=== PATIENT | female | born 1990 | race Caucasian/White ===

== ENCOUNTER 2016-12-10 07:55 | Inpatient (IN) | payer MEDICAID ==
[2016-12-10] VITALS (58 sets, daily range): BP systolic 75–139; BP diastolic 47–90; PULSE 71–125; RESP 16–20; TEMP 97.4–98.9
[~2016-12-10 07:55] MED LIST: MACR100C PO
--- NOTE | 2016-12-10 09:25 | MH ---
cc: BECKIE DELUCA DATE OF ADMISSION: 12/10/2016 DATE OF 1990 REASON FOR INDUCTION 1. Primip at 4+ cm. 2. Group B Strep positive. 3. Decreased movement. 4. Currently a SCOUPY. HISTORY OF PRESENT ILLNESS The patient is a 26-year-old single white female, 1, para 0, with EDC of December 17 based on early ultrasound who is 38 and 6/7 weeks has of December 09. She was seen in the office today. She is a resident of [facility]. She has been clean over 4 months. Her drugs of choice were Dilaudid and methadone. 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 She is currently taking Valtrex 500 b.i.d. for a history of genital herpes with no symptomatology and she is taking vitamins. She is Group B Strep positive and in the office she was 4 cm, 90% bulging bag of water, -1 and anterior. She was noting decreased movement over the last day and, based on the composite of these symptoms and issues the decision was made for her to come in on December 08 at 8 o'clock for AROM and Pitocin augmentation if indicated based on tolerance. However, we have reschedules her to the morning just due to capacity. MEDICAL HISTORY Her general health is good. She has no chronic or systemic illnesses other than major depressive disorder and anxiety disorder and a history of recurrent genital herpes. SOCIAL HISTORY She apparently does not smoke, drink or use any illicit drugs. PAST SURGICAL HISTORY She has had no other surgeries. FAMILY HISTORY Noncontributory. REVIEW OF SYSTEMS She acknowledges decreased movement but has no leaking or bleeding. She has some irregular contractions, no more than four in an hour but she is 4 cm. PHYSICAL EXAMINATION GENERAL: She is a well-developed, well-nourished female who is very anxious. LUNGS: Clear to auscultation. HEART: Rate and rhythm are regular. ABDOMEN: Fundus was term. Estimated weight is 7 pounds. Pelvis is clinically adequate. She has no CVA tenderness. EXTREMITIES: She has minimal edema and normal deep tendon reflexes. VITAL SIGNS: She is normotensive with normal pulse. IMPRESSION AT THIS POINT 1. Term intrauterine with a history of opioid use disorder in recovery for four months. 2. She has Terril I diagnosis and is on Lamictal. 3. She has a history of recurrent genital herpes and is on Valtrex. 4. She is Group B Strep positive. Based on the decreased movement formally and the other situations, she is being brought in as soon as there is a room available for AROM with Pitocin augmentation as needed. She understands I will not be able to deliver her baby, that it will be my partner, Dr. Jiménez, and that she will return to my care in the . Beckie Deluca MD PPC/SSB /9:00 PM /9:24 AM
[2016-12-10] MEDS ORDERED: OXYTOCIN 30 UNITS 500ML PREMIX IV ONE (09:30)
[2016-12-10] MEDS ORDERED: NS 500 ML BOLUS IV PRN (09:30)
[2016-12-10] MEDS ORDERED: LACTATED RINGER'S 1000 ML BOLUS IV PRN (09:30)
[2016-12-10] MEDS ORDERED: CITRIC ACID-SODIUM CITRATE LIQ 30 ML UDC PO SCH (09:30)
[2016-12-10] MEDS ORDERED: MINERAL OIL 10 ML VIAL TOP PRN (09:30)
[2016-12-10] MEDS ORDERED: PENICILLIN G POT 5,000,000 UNITS/NS 100 ML (Mini-Bag Plus) IV ONE ×2 (09:30)
[2016-12-10] MEDS ORDERED: LIDOCAINE HCL 1% 50 ML VIAL INFIL PRN (09:30)
[2016-12-10] MEDS ORDERED: OXYTOCIN 30 UNITS/NS 500ML PREMIX IV SCH (09:30)
[2016-12-10] MEDS ORDERED: LIDOCAINE HCL 1% 50 ML VIAL I-DERMAL PRN (09:30)
[2016-12-10] MEDS ORDERED: NS 1000 ML IV PRN (09:30)
[2016-12-10 09:50] LABS: AUTOMATED NEUTROPHIL # 8.9 TH/MM3 (1.8-7.7); BASOPHIL % 0.3 % (0.0-2.0); EOSINOPHIL # 0.1 TH/MM3 (0-0.4); EOSINOPHIL % 0.9 % (0.0-4.0); HEMATOCRIT 31.9 % (35.0-46.0); HEMO FLAGS DIFF FINAL; LYMPHOCYTE # 2.1 TH/MM3 (1.0-4.8); MEAN CELL VOLUME 80.3 FL (80.0-100.0); MEAN CORPUSCULAR HEMOGLOBIN 26.6 PG (27.0-34.0); MEAN CORPUSCULAR HGB CONC 33.1 % (32.0-36.0); MONO % 6.1 % (0.0-8.0); NEUT % 74.7 % (16.0-70.0); PLATELET COUNT 267 TH/MM3 (150-450); RED BLOOD COUNT 3.97 MIL/MM3 (4.00-5.30); RED CELL DISTRIBUTION WIDTH 15.1 % (11.6-17.2); WHITE BLOOD COUNT 11.9 TH/MM3 (4.0-11.0)
[2016-12-10 09:58] LABS: BLOOD, URINE NEG (NEG); GLUCOSE,URINE NEG (NEG); KETONE, URINE NEG (NEG); NITRITE,URINE NEG (NEG); PH, URINE 6.5 (5.0-8.5); SQUAMOUS EPITHELIAL CELL URINE 1 /hpf (0-5); URINE COLOR LIGHT-YELLOW (YELLW/STRAW)
[2016-12-10 10:04] LABS: COMMENT (UR) CULT NOT INDICATED; CULTURE IF INDICATED CULT NOT INDICATED
[2016-12-10 10:06] LABS: AMPHETAMINE, URINE NEG (NEG); BARBITURATES, URINE NEG (NEG); COCAINE, URINE NEG (NEG)
[2016-12-10] MEDS: LACTATED RINGER'S 1000 ML IV SCH ×2 (10:25→13:45)
--- NOTE | 2016-12-10 11:39 | PD.LABORPN ---
Subjective Subjective feeling ctx more intensely Objective Objective Uterine Contractions:q 4-5 min FHT's: Category: I presently. Previous decel at time of admission, otherwise reactive. Assessment/Plan Problem List: (1) Hep C w/ coma, chronic (2) HSV-2 infection complicating (3) GBS (group B Streptococcus carrier), +RV culture, currently (4) Adjustment disorder with mixed disturbance of emotions and conduct Assessment and Plan PT of Dr. Estrada here for iol iol- arom and pitocin Hep C- high viral load. f/u with GI pp Bipolar- lamictal 100mg daily GBS positive Berenice Montaño MD Dec 10, 2016 11:39
[2016-12-10] MEDS ORDERED: fentaNYL 2MCG-BUPIV 0.125% INJ 100 ML ONE (12:15)
[2016-12-10] MEDS ORDERED: DO NOT ADMINISTER ANTICOAGULANTS XX PRN (12:45)
[2016-12-10] MEDS ORDERED: NO SYSTEM NARCOTICS XX PRN (12:45)
[2016-12-10] MEDS ORDERED: ePHEDrine/NS 50 MG/5 ML SYR IV PRN (12:45)
[2016-12-10] MEDS ORDERED: fentaNYL 2MCG-BUPIV 0.125% INJ 100 ML EPIDURAL SCH (12:45)
[2016-12-10] MEDS ORDERED: PENICILLIN G POT 2,500,000 UNITS/NS 100 ML IV SCH ×2 (13:00)
[2016-12-10] MEDS ORDERED: DIPHTH/TETANUS/ACEL PERTUSSIS (BOOSTER) 0.5 ML VIAL/PFS IM ONE (16:00)
[2016-12-10] MEDS ORDERED: MEASLES, MUMPS, RUBELLA VACCINE 0.5 ML VIAL SQ ONE (16:00)
--- NOTE | 2016-12-10 18:46 | PD.OB.DELI ---
Delivery Date: Dec 10, 2016 Anesthesia: Epidural Episiotomy: None Vaginal Delivery: Normal Presentation: Occiput anterior Nuchal Cord: None, Other (true knot) Delayed cord clamping (45 sec): Yes Infant: Male One Minute : 8 Five Minute : 9 Weight: 3710g Infant Care: Suctioned, Responded to stimulation Placenta: Spontaneous delivery Laceration: Vaginal laceration (right labial laceration) Repair: Chromic running Additional Information ebl 300ml Berenice Montaño MD Dec 10, 2016 18:46
--- NOTE | 2016-12-10 18:48 | HHI.DCPOC ---
Discharge Care Plan Diagnosis: (1) Hep C w/ coma, chronic (2) HSV-2 infection complicating (3) Adjustment disorder with mixed disturbance of emotions and conduct (4) (spontaneous vaginal delivery) Your Health Problems Are: Vaginal delivery Report Symptoms to Your Doctor -Temperate above 100.5 degrees -Redness, of incision or excessive or foul smelling drainage -Unusual pain or calf pain -Increased vaginal bleeding -Painful or difficulty urinating -Feelings of extreme sadness or anxiety after 2 weeks Goals to Promote Your Health * To prevent worsening of your condition and complications * To maintain your health at the optimal level Directions to Meet Your Goals Take your medications as prescribed Follow your dietary instruction Follow activity as directed Ensure plenty of rest for recovery Drink fluids for hydration Keep your appointments as scheduled Take your immunizations and boosters as scheduled If your symptoms worsen call your PCP, if no PCP go to Urgent Care Center or Emergency Room Smoking is Dangerous to Your Health. Avoid second hand smoke Call the 24-hour crisis hotline for domestic abuse at Berenice Montaño MD Dec 10, 2016 18:48
[2016-12-10] MEDS ORDERED: SODIUM CHLORIDE 0.9% FLUSH 5 ML FLUSH IV PRN (19:00)
[2016-12-10] MEDS ORDERED: DOCUSATE SODIUM 50 MG/SENNA 8.6 MG TAB PO PRN (19:00)
[2016-12-10] MEDS ORDERED: ONDANSETRON ODT 4 MG TAB PO PRN (19:00)
[2016-12-10] MEDS ORDERED: ZOLPIDEM TARTRATE 5 MG TAB PO PRN (19:00)
[2016-12-10] MEDS ORDERED: ALUMINUM/MAGNESIUM/SIMETH 30 ML CUP PO PRN (19:00)
[2016-12-10] MEDS ORDERED: WITCH HAZEL 50%/GLYCERIN 12.5% 40 PAD JAR TOPICAL PRN (19:00)
[2016-12-10] MEDS ORDERED: BENZOCAINE 20% TOPICAL SPRAY 60 ML CAN TOPICAL PRN (19:00)
[2016-12-10] MEDS: IBUPROFEN 600 MG TAB PO PRN (20:19)
[2016-12-10] MEDS ORDERED: SODIUM CHLORIDE 0.9% FLUSH 5 ML FLUSH IV SCH (21:00)
[2016-12-11] MEDS: IBUPROFEN 600 MG TAB PO PRN ×4 (05:05→23:42)
[2016-12-11] MEDS: ACETAMINOPHEN 325 MG TAB PO PRN ×4 (07:47→23:39)
[2016-12-11 08:00] VITALS: BP 125/68; PULSE 84; RESP 18; TEMP 97.5; O2SAT 98
--- NOTE | 2016-12-11 08:08 | HHI.OB ---
Subjective Post Day: 1 Remarks c/o perineal soreness Objective Vitals/I&O Vital Signs Date Time Temp Pulse Resp B/P Pulse Ox O2 Delivery O2 Flow Rate FiO2 12/10/16 22:00 97.4 83 18 121/76 12/10/16 21:30 98.1 12/10/16 21:30 18 12/10/16 21:15 91 18 139/67 12/10/16 21:01 87 117/63 12/10/16 21:00 18 12/10/16 20:45 89 119/72 12/10/16 20:30 96 117/66 12/10/16 20:18 98.9 12/10/16 20:15 94 118/65 12/10/16 20:13 18 12/10/16 20:00 90 125/68 12/10/16 20:00 18 12/10/16 19:45 93 119/60 12/10/16 19:01 95 75/47 12/10/16 18:45 20 12/10/16 18:30 109 135/57 12/10/16 17:30 88 127/79 12/10/16 17:05 20 12/10/16 17:00 86 127/76 12/10/16 16:32 20 12/10/16 16:30 125 127/90 12/10/16 16:04 98.1 12/10/16 16:04 20 12/10/16 16:00 81 136/82 12/10/16 15:40 82 12/10/16 15:35 78 12/10/16 15:30 81 104/72 12/10/16 15:30 84 12/10/16 15:10 83 12/10/16 15:05 91 12/10/16 15:00 85 12/10/16 15:00 86 108/63 12/10/16 14:40 73 12/10/16 14:30 71 128/78 12/10/16 14:15 20 12/10/16 14:10 83 12/10/16 14:05 90 12/10/16 14:00 93 113/70 12/10/16 14:00 86 12/10/16 13:45 16 12/10/16 13:40 73 12/10/16 13:35 74 12/10/16 13:30 77 18 112/71 12/10/16 13:30 71 12/10/16 13:27 97.7 12/10/16 13:25 73 12/10/16 13:21 73 117/68 12/10/16 13:20 83 12/10/16 13:15 82 12/10/16 12:55 92 12/10/16 12:51 88 118/66 12/10/16 12:50 81 12/10/16 12:45 73 12/10/16 12:45 86 129/71 12/10/16 12:42 84 126/66 12/10/16 12:40 87 12/10/16 12:35 88 12/10/16 12:31 83 114/72 12/10/16 12:25 71 131/85 12/10/16 11:35 98.3 20 12/10/16 11:34 84 132/78 12/10/16 11:00 20 12/10/16 10:59 88 123/71 12/10/16 10:33 76 125/76 12/10/16 10:24 79 115/66 Objective Remarks GENERAL: Well-nourished, well-developed patient. CARDIOVASCULAR: Regular rate and rhythm without murmurs, gallops, or rubs. RESPIRATORY: Breath sounds equal bilaterally. No accessory muscle use. ABDOMEN/GI: Abdomen soft, non-tender. Fundus: Firm, non-tender at umbilicus. GENITOURINARY: Light to moderate bleeding. EXTREMITIES: No cyanosis or edema, non-tender, without signs of DVT. Medications and IVs Current Medications Medications (Trade) Dose Ordered Sig/Sera Route Start Time Stop Time Status Last Admin (LaMICtal) 100 mg DAILY PO 12/11/16 09:00 (NS Flush) 2 ml BID IV 12/10/16 21:00 (NS Flush) 2 ml UNSCH PRN IV 12/10/16 19:00 (Tylenol) 650 mg Q4H PRN PO 12/10/16 19:00 12/11/16 07:47 (Motrin) 600 mg Q6H PRN PO 12/10/16 19:00 12/11/16 05:05 (Americaine 20% Top Spr) 1 spray Q4H PRN TOPICAL 12/10/16 19:00 (Tucks Pads) 1 applic QID PRN TOPICAL 12/10/16 19:00 (Emily-Colace) 2 tab Q12H PRN PO 12/10/16 19:00 (Ambien) 5 mg HS PRN PO 12/10/16 19:00 (Mag-Al Plus Susp Liq) 15 ml Q8H PRN PO 12/10/16 19:00 (Zofran Odt) 4 mg Q6H PRN PO 12/10/16 19:00 Miscellaneous Information No systemic narcotics to be given except... UNSCH PRN XX 12/10/16 12:45 12/11/16 12:44 Miscellaneous Information DO NOT ADMINISTER ANY ANTICOAGUL... UNSCH PRN XX 12/10/16 12:45 12/11/16 12:44 (fentaNYL 2MCG-BUPIV 0.125% INJ) 100 ml @ 0 mls/hr TITRATE EPIDURAL 12/10/16 12:45 (ePHEDrine/NS 50 MG/5 ML SYR) 10 mg UNSCH PRN IV 12/10/16 12:45 12/11/16 12:44 Assessment/Plan Problem List: (1) Hep C w/ coma, chronic (2) HSV-2 infection complicating (3) GBS (group B Streptococcus carrier), +RV culture, currently (4) Adjustment disorder with mixed disturbance of emotions and conduct Assessment and Plan PPd 1- cont routine care Bipolar- cont meds HepC- f/u with gi pp h/o drug abuse- warm resident Berenice Montaño MD Dec 11, 2016 08:08
[2016-12-11] MEDS: lamoTRIgine 100 MG TAB PO SCH (09:00)
[2016-12-11 20:00] VITALS: BP 112/62; PULSE 84; RESP 20; TEMP 97.6
[2016-12-12] MEDS: IBUPROFEN 600 MG TAB PO PRN (06:23)
[2016-12-12] MEDS: ACETAMINOPHEN 325 MG TAB PO PRN (06:28)
[2016-12-12 08:20] VITALS: BP 119/65; PULSE 72; RESP 18; TEMP 97.9
[2016-12-12] MEDS: lamoTRIgine 100 MG TAB PO SCH (09:25)
[2016-12-12] MEDS ORDERED: INFLUENZA VIRUS VACCINE (QUADRIVALENT) 0.5 ML SYR IM ONE (10:00)
--- NOTE | 2016-12-12 10:07 | HHI.OB ---
Subjective Post Day: 2 Remarks pt doing well, circ done today Objective Vitals/I&O Vital Signs Date Time Temp Pulse Resp B/P Pulse Ox O2 Delivery O2 Flow Rate FiO2 12/12/16 08:20 72 18 119/65 12/12/16 08:20 97.9 12/11/16 20:00 84 20 112/62 12/11/16 20:00 97.6 12/11/16 13:01 16 12/11/16 13:01 16 Objective Remarks GENERAL: Well-nourished, well-developed patient. CARDIOVASCULAR: Regular rate and rhythm without murmurs, gallops, or rubs. RESPIRATORY: Breath sounds equal bilaterally. No accessory muscle use. ABDOMEN/GI: Abdomen soft, non-tender. Fundus: Firm, non-tender at umbilicus. GENITOURINARY: Light to moderate bleeding. EXTREMITIES: No cyanosis or edema, non-tender, without signs of DVT. Medications and IVs Current Medications Medications (Trade) Dose Ordered Sig/Sera Route Start Time Stop Time Status Last Admin (LaMICtal) 100 mg DAILY PO 12/11/16 09:00 12/12/16 09:25 (NS Flush) 2 ml BID IV 12/10/16 21:00 (NS Flush) 2 ml UNSCH PRN IV 12/10/16 19:00 (Tylenol) 650 mg Q4H PRN PO 12/10/16 19:00 12/12/16 06:28 (Motrin) 600 mg Q6H PRN PO 12/10/16 19:00 12/12/16 06:23 (Americaine 20% Top Spr) 1 spray Q4H PRN TOPICAL 12/10/16 19:00 12/11/16 23:40 (Tucks Pads) 1 applic QID PRN TOPICAL 12/10/16 19:00 12/11/16 23:40 (Emily-Colace) 2 tab Q12H PRN PO 12/10/16 19:00 (Ambien) 5 mg HS PRN PO 12/10/16 19:00 (Mag-Al Plus Susp Liq) 15 ml Q8H PRN PO 12/10/16 19:00 Ondansetron HCl 4 mg 4 mg Q6H PRN PO 12/10/16 19:00 (fentaNYL 2MCG-BUPIV 0.125% INJ) 100 ml @ 0 mls/hr TITRATE EPIDURAL 12/10/16 12:45 Assessment/Plan Problem List: (1) Hep C w/ coma, chronic (2) HSV-2 infection complicating (3) GBS (group B Streptococcus carrier), +RV culture, currently (4) Adjustment disorder with mixed disturbance of emotions and conduct (5) (spontaneous vaginal delivery) Assessment and Plan PPd 2- cont routine care Bipolar- cont meds HepC- f/u with gi pp h/o drug abuse- warm resident Discharge Planning routine, to WARM family transport Attending Attestation pt seen by Mana Reyes MD Dec 12, 2016 10:07
[2016-12-12] MEDS ORDERED: IBUP-232 PO (10:09)
[2016-12-17 08:28] LABS: OBMETHADONE UR NEG (NEG); PHENCYCLIDINE URINE NEG (NEG)
[2016-12-17 08:29] LABS: BATH SALTS (MDPV) UR NEG (NEG); ECSTASY (MDMA) UR NEG (NEG); HEROIN (6-ACETYLMORPHINE) UR NEG (NEG); K2 SPICE UR NEG (NEG); OXYCODONE (PERCODAN) NEG (NEG)
== END 2016-12-12 16:47 | disposition home or self-care (01) | DRG 774 ==
LOC: H2EA 07:55 → H1EA 21:31
PROVIDERS: ADMIT Obstetrics & Gynecology; ATTEND Obstetrics & Gynecology
PROC: 10E0XZZ Delivery of Products of Conception, External Approach (ICD-10-PCS; principal; 2016-12-10)
PROC: 0KQM0ZZ Repair Perineum Muscle, Open Approach (ICD-10-PCS; 2016-12-10)
PROC: 3E0R3CZ (ICD-10-PCS; 2016-12-10)
PROC: 00HU33Z Insertion of Infusion Device into Spinal Canal, Percutaneous Approach (ICD-10-PCS; 2016-12-10)
DX: O70.0 First degree perineal laceration during delivery (principal); O98.42 Viral hepatitis complicating childbirth; Z37.0 Single live birth; B19.21 Unspecified viral hepatitis C with hepatic coma; O98.32 Other infections with a predominantly sexual mode of transmission complicating childbirth; O99.344 Other mental disorders complicating childbirth; A60.00 Herpesviral infection of urogenital system, unspecified; O99.824 Streptococcus B carrier state complicating childbirth; F43.25 Adjustment disorder with mixed disturbance of emotions and conduct; Z3A.38 38 weeks gestation of pregnancy
CPT/HCPCS: 59025; 80307; 81001; 85025; 86900; 86901; 90686; 90715; G0481; J2540; J2590; J7120; Q2038